=== PATIENT | male | born 1990 | race Caucasian/White ===

== ENCOUNTER 2018-01-22 14:40 | Emergency (ER) | payer SELFPAY ==
[~2018-01-22] VITALS: Ht 177.8 cm; Wt 136.1 kg
[2018-01-22] MEDS ORDERED: COLCHICINE 0.6 MG TAB PO STA (16:36)
[2018-01-22] MEDS ORDERED: DEXAMETHASONE SOD PHOS 10 MG/1 ML VIAL INJ ONE (16:45)
[2018-01-22] MEDS ORDERED: KETOROLAC TROMETHAMINE 60 MG/2 ML VIAL IM NR (16:45)
[2018-01-22] MEDS ORDERED: KETOROLAC TROMETHAMINE 60 MG/2 ML VIAL IV NR (17:15)
[2018-01-22] MEDS ORDERED: KETOROLAC TROMETHAMINE 30 MG/ML VIAL IV NR (17:15)
[2018-01-22] MEDS ORDERED: DEXAMETHASONE SOD PHOS 10 MG/1 ML VIAL IV NR (17:15)
[2018-01-22 18:49] VITALS: BP 135/66
== END 2018-01-22 18:03 | disposition home or self-care (01) ==
LOC: ER 14:40
DX: M79.672 Pain in left foot (principal); M10.072 Idiopathic gout, left ankle and foot; E66.9 Obesity, unspecified
CPT/HCPCS: 36415; 84550; 99283; J1100; J1885

== ENCOUNTER 2018-04-08 10:26 | Emergency (ER) | payer SELFPAY ==
[~2018-04-08] VITALS: Ht 177.8 cm; Wt 136.1 kg
[2018-04-08] MEDS ORDERED: TRAMADOL HCL 50 MG TAB PO ONE (11:15)
[2018-04-08 12:40] VITALS: BP 153/86
== END 2018-04-08 12:40 | disposition home or self-care (01) ==
LOC: ER 10:26
DX: M25.571 Pain in right ankle and joints of right foot (principal); X50.1XXA Overexertion from prolonged static or awkward postures, initial encounter; Y92.008 Other place in unspecified non-institutional (private) residence as the place of occurrence of the external cause; M10.9 Gout, unspecified
CPT/HCPCS: 99283